=== PATIENT | male | born 1995 | race Caucasian/White ===

== ENCOUNTER 2019-03-08 18:47 | Emergency (ER) | payer OTHER ==
[~2019-03-08] VITALS: Ht 188 cm; Wt 79.5 kg
[2019-03-08] MEDS ORDERED: thera flu (18:55)
[2019-03-08] MEDS ORDERED: IBUPROFEN 800 MG TAB PO ONE (19:00)
[2019-03-08 20:27] LABS: INFLUENZA A AMPLIFICATION NEGATIVE (NEGATIVE); INFLUENZA B AMPLIFICATION NEGATIVE (NEGATIVE)
[2019-03-08 22:42] VITALS: BP 128/76
--- NOTE | 2019-03-09 01:33 | REPVR ---
PROCEDURE INFORMATION: Exam: XR Chest, 2 Views Exam date and time: 03/09/2019 12:44 AM Age: 24 years old Clinical history: Fever; Additional info: Fever, fatigue TECHNIQUE: Imaging protocol: XR of the chest Views: 2 views. COMPARISON: No relevant prior studies available. FINDINGS: Lungs: Degree of inflation of the lungs is normal. No evidence of pulmonary edema. No focal airspace process. No concerning parenchymal lung mass. Pleural space: No pleural effusion or pneumothorax. Heart/Mediastinum: Cardiac silhouette appears normal. No mediastinal adenopathy or hilar mass. Bones/joints: Osseous structures show no acute or concerning abnormality. IMPRESSION: No active or focal cardiopulmonary process. Electronically signed by: Rajesh Nelson On 03/09/2019 01:32:55 AM
== END 2019-03-09 01:55 | disposition home or self-care (01) ==
LOC: M ED 18:47
DX: B34.9 Viral infection, unspecified (principal)

== ENCOUNTER 2021-06-04 09:34 | Emergency (ER) | payer OTHER ==
[~2021-06-04] VITALS: Ht 188 cm; Wt 77.3 kg
[~2021-06-04 09:34] MED LIST: thera flu
[2021-06-04] MEDS ORDERED: CYMB1CAP4 PO (09:57)
[2021-06-04 14:43] LABS: HEMOGLOBIN 16.3 g/dl (13.5-17.5); MEAN CORPUSCULAR HEMOGLOBIN 32.8 pg (27.0-33.0); MEAN CORPUSCULAR VOLUME 96.6 fl (80.0-96.0); PLATELET COUNT, AUTOMATED 208 10^3/uL (150-450); RED BLOOD COUNT 4.97 10^6/uL (4.30-6.10); WHITE BLOOD COUNT 5.1 10^3/uL (4.0-10.0)
[2021-06-04 15:14] LABS: AMPHETAMINES LEVEL URINE NEGATIVE (NEGATIVE); BARBITURATES URINE NEGATIVE (NEGATIVE); BENZODIAZEPINES URINE NEGATIVE (NEGATIVE); CANNABINOIDS URINE NEGATIVE (NEGATIVE); COCAINE METABOLITE URINE NEGATIVE (NEGATIVE); METHADONE URINE NEGATIVE (NEGATIVE); OPIATES URINE NEGATIVE (NEGATIVE); PHENCYCLIDINE URINE NEGATIVE (NEGATIVE)
[2021-06-04] MEDS ORDERED: DULoxetine 20 MG CAP (CYMBALTA) PO ONE (15:20)
[2021-06-04 15:30] LABS: ACETAMINOPHEN LEVEL < 2.0 UG/ML (10.0-30.0); ALBUMIN 4.2 GM/DL (3.2-5.2); ALT/SGPT 68 U/L (12-78); BILIRUBIN,DIRECT 0.2 MG/DL (0.0-0.2); BILIRUBIN,TOTAL 0.4 MG/DL (0.2-1.0); BLOOD UREA NITROGEN 10 MG/DL (7-18); CALCIUM LEVEL 9.2 MG/DL (8.5-10.1); CARBON DIOXIDE LEVEL 35 MEQ/L (21-32); CHLORIDE LEVEL 104 MEQ/L (98-107); CREATININE FOR GFR 0.98 MG/DL (0.70-1.30); ETHYL ALCOHOL (ETHANOL) < 0.003 % (0.000-0.010); GLOMERULAR FILTRATION RATE > 60.0 (>60); GLUCOSE, FASTING 106 MG/DL (70-100); POTASSIUM SERUM 4.5 MEQ/L (3.5-5.1); SALICYLATE LEVEL < 1.7 MG/DL (5.0-30.0); SODIUM LEVEL 139 MEQ/L (136-145); TOTAL PROTEIN 7.1 GM/DL (6.4-8.2)
[2021-06-05] MEDS ORDERED: DULoxetine 20 MG CAP (CYMBALTA) PO ONE (08:15)
[2021-06-05 12:08] VITALS: BP 114/61
== END 2021-06-05 12:12 ==
LOC: M ED 09:34
DX: F32.A Depression, unspecified (principal); R45.851 Suicidal ideations; Z91.51 Personal history of suicidal behavior

== ENCOUNTER 2021-08-08 20:17 | Emergency (ER) | payer OTHER ==
[~2021-08-08] VITALS: Ht 188 cm; Wt 77.3 kg
[~2021-08-08 20:17] MED LIST changes: +CYMB1CAP4 PO
[2021-08-08 20:54] LABS: HEMATOCRIT 44.4 % (42.0-52.0); HEMOGLOBIN 15.5 g/dl (13.5-17.5); MEAN CORPUSCULAR HGB CONC 34.9 g/dl (32.0-36.5); MEAN CORPUSCULAR VOLUME 91.5 fl (80.0-96.0); PLATELET COUNT, AUTOMATED 235 10^3/uL (150-450); RED BLOOD COUNT 4.85 10^6/uL (4.30-6.10); WHITE BLOOD COUNT 7.2 10^3/uL (4.0-10.0)
[2021-08-08 21:21] LABS: RSV AMPLIFICATION NEGATIVE (NEGATIVE)
[2021-08-08 21:29] LABS: ACETAMINOPHEN LEVEL < 2.0 UG/ML (10.0-30.0); ALBUMIN 4.2 GM/DL (3.2-5.2); ALT/SGPT 25 U/L (12-78); BILIRUBIN,DIRECT 0.1 MG/DL (0.0-0.2); BILIRUBIN,TOTAL 0.3 MG/DL (0.2-1.0); BLOOD UREA NITROGEN 12 MG/DL (7-18); CALCIUM LEVEL 9.3 MG/DL (8.5-10.1); CARBON DIOXIDE LEVEL 31 MEQ/L (21-32); CHLORIDE LEVEL 105 MEQ/L (98-107); ETHYL ALCOHOL (ETHANOL) 0.005 % (0.000-0.010); GLOMERULAR FILTRATION RATE > 60.0 (>60); GLUCOSE, FASTING 108 MG/DL (70-100); POTASSIUM SERUM 3.9 MEQ/L (3.5-5.1); SALICYLATE LEVEL < 1.7 MG/DL (5.0-30.0); SODIUM LEVEL 140 MEQ/L (136-145); THYROID STIMULATING HORMONE 0.859 uIU/ML (0.358-3.740); TOTAL PROTEIN 6.9 GM/DL (6.4-8.2)
[2021-08-08] MEDS ORDERED: HOME MED LIST COMPLETE! XX SCH (22:25)
[2021-08-08] MEDS ORDERED: LIDOCAINE W/EPINEPHRINE 1% 20ML VIAL SC ONE (23:35)
[2021-08-09 06:29] LABS: AMPHETAMINES LEVEL URINE NEGATIVE (NEGATIVE); BARBITURATES URINE NEGATIVE (NEGATIVE); BENZODIAZEPINES URINE NEGATIVE (NEGATIVE); CANNABINOIDS URINE NEGATIVE (NEGATIVE); COCAINE METABOLITE URINE NEGATIVE (NEGATIVE); METHADONE URINE NEGATIVE (NEGATIVE); OPIATES URINE NEGATIVE (NEGATIVE); PHENCYCLIDINE URINE NEGATIVE (NEGATIVE)
[2021-08-10 09:40] VITALS: BP 114/60
[2021-08-22 16:09] LABS: DEXTROMETHORPHAN >4000 ng/mL (NEGATIVE); DEXTRORPHAN >4000 ng/mL (NEGATIVE)
== END 2021-08-10 09:44 ==
LOC: M ED 20:17
DX: T14.91XA Suicide attempt, initial encounter (principal); W26.0XXA Contact with knife, initial encounter; F10.10 Alcohol abuse, uncomplicated; F32.A Depression, unspecified; Y92.9 Unspecified place or not applicable; Y93.9 Activity, unspecified; Y99.9 Unspecified external cause status
CPT/HCPCS: 12005; 80048; 80076; 80143; 80307; 82077; 84443; 85027; 87631; 93005; 99284; G0480

== ENCOUNTER → 2021-12-08 | Outpatient (REF) | LOC: M LAB REF 23:57 | DX: Z02.89 Encounter for other administrative examinations (principal) ==

== ENCOUNTER → 2021-12-09 | Outpatient (REF) | LOC: M LAB REF 02:30 | DX: Z02.89 Encounter for other administrative examinations (principal) ==

== ENCOUNTER → 2022-03-03 | Outpatient (CLI) | payer OTHER | LOC: M RAD 07:36 | PROVIDERS: ATTEND Family Medicine | DX: M25.551 Pain in right hip (principal) ==

== ENCOUNTER 2022-04-24 17:46 | Emergency (ER) | payer OTHER ==
[2022-04-24] MEDS ORDERED: OLANZapine INTRAMUSCULAR 10MG VIAL IM ONE (18:15)
[2022-04-24] MEDS ORDERED: MIDAZOLAM INJ 2MG/2ML VIAL IM ONE (18:15)
[2022-04-24 18:26] LABS: HEMOGLOBIN 16.6 g/dl (13.5-17.5); MEAN CORPUSCULAR HEMOGLOBIN 33.2 pg (27.0-33.0); MEAN CORPUSCULAR HGB CONC 34.6 g/dl (32.0-36.5); PLATELET COUNT, AUTOMATED 215 10^3/uL (150-450); WHITE BLOOD COUNT 8.8 10^3/uL (4.0-10.0)
[2022-04-24] MEDS ORDERED: OLANZapine ORAL DISINTEGRATING TAB 5MG PO ONE (18:30)
[2022-04-24] MEDS ORDERED: LORazepam 2 MG TAB PO STA (18:30)
[2022-04-24 18:45] LABS: ETHYL ALCOHOL (ETHANOL) 0.162 % (0.000-0.010)
[2022-04-24 18:46] LABS: BILIRUBIN,DIRECT 0.2 MG/DL (<0.4)
[2022-04-24 18:47] LABS: ACETAMINOPHEN LEVEL < 2.0 UG/ML (10.0-20.0); SALICYLATE LEVEL < 3.0 MG/DL (<30)
[2022-04-24 18:49] LABS: THYROID STIMULATING HORMONE 1.181 uIU/ML (0.55-4.78)
[2022-04-24 18:51] LABS: ALBUMIN 4.3 G/DL (3.2-5.2); ALKALINE PHOSPHATASE 53 U/L (46-116); ALT/SGPT 31 U/L (7.0-40); AST/SGOT 28 U/L (<34); BILIRUBIN,TOTAL 0.9 MG/DL (0.3-1.2); BLOOD UREA NITROGEN 14 MG/DL (9-23); CALCIUM LEVEL 8.7 MG/DL (8.5-10.1); CARBON DIOXIDE LEVEL 26 MMOL/L (20-31); CHLORIDE LEVEL 106 MMOL/L (98-107); GLOMERULAR FILTRATION RATE > 60.0 (>60); GLUCOSE, FASTING 78 MG/DL (60-100); POTASSIUM SERUM 3.6 MMOL/L (3.5-5.1); SODIUM LEVEL 143 MMOL/L (136-145)
[2022-04-24 18:56] LABS: RSV AMPLIFICATION NEGATIVE (NEGATIVE)
[2022-04-24 20:05] LABS: AMPHETAMINES LEVEL URINE NEGATIVE (NEGATIVE); BARBITURATES URINE NEGATIVE (NEGATIVE); BENZODIAZEPINES URINE NEGATIVE (NEGATIVE); CANNABINOIDS URINE NEGATIVE (NEGATIVE); COCAINE METABOLITE URINE NEGATIVE (NEGATIVE); METHADONE URINE NEGATIVE (NEGATIVE); OPIATES URINE NEGATIVE (NEGATIVE); PHENCYCLIDINE URINE NEGATIVE (NEGATIVE)
[2022-04-25 06:25] VITALS: BP 130/75
== END 2022-04-25 06:40 ==
LOC: M ED 17:46
DX: R45.851 Suicidal ideations (principal); F29 Unspecified psychosis not due to a substance or known physiological condition; F32.A Depression, unspecified

== ENCOUNTER 2022-07-10 08:22 | Inpatient (IN) | payer OTHER ==
[~2022-07-10] VITALS: Ht 188 cm; Wt 89.2 kg
[2022-07-10] MEDS ORDERED: LATU1TAB PO (08:34)
[2022-07-10] MEDS ORDERED: MIRT-11 PO (08:34)
[2022-07-10] MEDS ORDERED: DIVA500T94 PO (08:34)
[2022-07-10] MEDS ORDERED: PRAZ5CAP PO (08:34)
[2022-07-10] MEDS ORDERED: BUSP15TA47 PO (08:34)
[2022-07-10] MEDS ORDERED: DIVA250T67 PO (08:34)
[2022-07-10] MEDS ORDERED: NALT50TA4 PO (08:34)
[2022-07-10 09:00] LABS: HEMATOCRIT 47.4 % (42.0-52.0); HEMOGLOBIN 15.8 g/dl (13.5-17.5); MEAN CORPUSCULAR HEMOGLOBIN 32.8 pg (27.0-33.0); MEAN CORPUSCULAR HGB CONC 33.3 g/dl (32.0-36.5); MEAN CORPUSCULAR VOLUME 98.5 fl (80.0-96.0); PLATELET COUNT, AUTOMATED 178 10^3/uL (150-450); RED BLOOD COUNT 4.81 10^6/uL (4.30-6.10); WHITE BLOOD COUNT 6.1 10^3/uL (4.0-10.0)
[2022-07-10] MEDS ORDERED: MULTIVITAMINS/MINERALS THERAP 1 TAB PO SCH (09:00)
[2022-07-10] MEDS ORDERED: FOLIC ACID 1MG TAB PO SCH (09:00)
[2022-07-10] MEDS ORDERED: THIAMINE 100 MG TAB PO SCH (09:00)
[2022-07-10 09:21] LABS: BLOOD UREA NITROGEN 10 MG/DL (9-23); CALCIUM LEVEL 8.8 MG/DL (8.5-10.1); CARBON DIOXIDE LEVEL 34 MMOL/L (20-31); CHLORIDE LEVEL 104 MMOL/L (98-107); GLOMERULAR FILTRATION RATE > 60.0 (>60); GLUCOSE, FASTING 159 MG/DL (60-100); POTASSIUM SERUM 4.3 MMOL/L (3.5-5.1); SODIUM LEVEL 139 MMOL/L (136-145)
[2022-07-10 09:32] LABS: RSV AMPLIFICATION NEGATIVE (NEGATIVE)
[2022-07-10] MEDS ORDERED: OXAZEPAM 15MG CAP PO ONE (11:30)
[2022-07-10] MEDS ORDERED: LORazepam 2 MG TAB PO PRN (11:30)
[2022-07-10 11:39] LABS: ALBUMIN 3.9 G/DL (3.2-5.2); ALKALINE PHOSPHATASE 45 U/L (46-116); ALT/SGPT 20 U/L (7.0-40); AST/SGOT 16 U/L (<34); BILIRUBIN,DIRECT 0.2 MG/DL (<0.4); BILIRUBIN,TOTAL 0.5 MG/DL (0.3-1.2); TOTAL PROTEIN 6.3 G/DL (5.7-8.2)
[2022-07-10 11:59] LABS: AMPHETAMINES LEVEL URINE NEGATIVE (NEGATIVE); BARBITURATES URINE NEGATIVE (NEGATIVE); BENZODIAZEPINES URINE NEGATIVE (NEGATIVE); CANNABINOIDS URINE NEGATIVE (NEGATIVE); COCAINE METABOLITE URINE NEGATIVE (NEGATIVE); METHADONE URINE NEGATIVE (NEGATIVE); OPIATES URINE NEGATIVE (NEGATIVE); PHENCYCLIDINE URINE NEGATIVE (NEGATIVE)
[2022-07-10 12:30] LABS: ETHYL ALCOHOL (ETHANOL) 0.003 % (0.000-0.010)
[2022-07-10 12:31] LABS: ACETAMINOPHEN LEVEL 27.6 UG/ML (10.0-20.0); CPK CREATINE PHOSPHOKINASE 67 U/L (46-171)
[2022-07-10 12:32] LABS: SALICYLATE LEVEL 3.3 MG/DL (<30)
[2022-07-10 13:00] LABS: THYROID STIMULATING HORMONE 0.758 uIU/ML (0.55-4.78)
[2022-07-10] MEDS ORDERED: PRAZOSIN 1 MG CAP PO SCH (21:00)
[2022-07-10] MEDS ORDERED: ACET-907 PO (21:02)
[2022-07-10] MEDS ORDERED: med rec comment (21:03)
[2022-07-10] MEDS ORDERED: HOME MED LIST COMPLETE! XX SCH (21:05)
[2022-07-10] MEDS ORDERED: MOM 30ML SUSPENSION UDC PO PRN (21:50)
[2022-07-10] MEDS ORDERED: ACETAMINOPHEN TAB 650MG DOSE (2X325MG) PO PRN (21:50)
[2022-07-10] MEDS ORDERED: MAALOX 30 ML SUSP *UDC PO PRN (21:50)
[2022-07-10] MEDS ORDERED: traZODone 50 MG TAB PO PRN (21:50)
[2022-07-10] MEDS ORDERED: OLANZapine 5 MG TAB PO PRN (21:50)
[2022-07-11 00:22] VITALS: BP 135/64
[2022-07-11] MEDS: busPIRone 5 MG TAB PO SCH ×2 (00:22→09:21)
[2022-07-11] MEDS: DIVALPROEX 250MG TAB PO SCH ×2 (00:22→09:20)
[2022-07-11] MEDS: DIVALPROEX 500 MG TAB PO SCH ×2 (00:22→09:20)
[2022-07-11 00:25] VITALS: BP 135/64
[2022-07-11] MEDS ORDERED: NALTREXONE 50 MG TAB PO SCH (09:00)
[2022-07-11] MEDS ORDERED: LURASIDONE 20 MG TAB (LATUDA) PO SCH (09:00)
== END 2022-07-11 13:22 | disposition home or self-care (01) | DRG 885 ==
LOC: M ED 08:22 → M ED INP 21:48 → M PSY 23:06
PROVIDERS: ADMIT Psychiatry & Neurology Psychiatry; ATTEND Psychiatry & Neurology Psychiatry
DX: F31.9 Bipolar disorder, unspecified (principal); F10.139 Alcohol abuse with withdrawal, unspecified; Z91.82 Personal history of military deployment; F43.10 Post-traumatic stress disorder, unspecified; Z79.899 Other long term (current) drug therapy; Z20.822 Contact with and (suspected) exposure to COVID-19